=== PATIENT | male | born 1950 | race Caucasian/White ===

== ENCOUNTER 2020-08-02 08:47 | Outpatient (CLI) | payer SELFPAY ==
[2020-08-02 11:44] LABS: Source Nasal/Nares
[2020-08-02 14:48] LABS: COVID-19 PCR Negative (Negative)
== END 2020-08-02 08:48 | disposition home or self-care (01) ==
PROVIDERS: PCP Internal Medicine; Visit Provider Surgery
DX: Z20.822 Contact with and (suspected) exposure to COVID-19 (principal); Z01.818 Encounter for other preprocedural examination
CPT/HCPCS: 87635

== ENCOUNTER 2022-12-09 11:46 | Emergency (ER) | payer OTHER, SELFPAY ==
[2022-12-09 12:01] VITALS: BP 149/79; PULSE 125; RESP 18; TEMP 37.6; O2SAT 96
--- NOTE | 2022-12-09 12:15 | RT.EKG_ITS ---
APPROVED REPORT Exam: Resting ECG Reason for Exam: tachycardia Patient Location: E HR:98 bpm ECG Measurements Heart Rate 98 AXIS DE 158 P 45 QRSd 93 QRS 10 QT 335 T -9 QTc 427 Conclusion Sinus rhythm...normal P axis, V-rate 60- 99 sinus rhythm, normal axis, normal intervals non ischemic
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
[2022-12-09] MEDS: CLINDAMYCIN 600 MG/50 ML BAG 100 MG IVPB (13:06)
[2022-12-09 13:07] VITALS: TEMP 38.6
[2022-12-09] MEDS: ACETAMINOPHEN 1,000 MG/100 ML BTL 400 MG IVPB (13:07)
[2022-12-09] MEDS: Normal Saline 1,000 ML 1000 ML IV (13:08)
[2022-12-09] MEDS: Ondansetron 4 MG/2 ML VIAL IVP (13:08)
[2022-12-09 13:11] LABS: Abs Immature Grans 0.09 10^3/uL (0.0-0.06); Absolute Basophil Count 0.03 10^3/uL (0.0-0.2); Absolute Eosinophil Count 0.02 10^3/uL (0.0-0.7); Absolute Lymphocyte Count 0.26 10^3/uL (1.2-3.4); Absolute Monocyte Count 0.93 10^3/uL (0.1-0.8); Absolute Neutrophil Count 14.65 10^3/uL (1.2-6.7); Basophils % 0.2; Eosinophils % 0.1; HGB 14.7 g/dL (13.5-17.5); Immature Grans % 0.6; Lymphocytes % 1.6; MCH 29.7 pg (27.0-33.0); MCHC 33.4 % (32.0-36.0); MCV 89 fL (80-95); MPV 10.6 fL (8.0-11.0); Monocytes % 5.8; Neutrophils % 91.7; Platelet Count 217 10^3/uL (130-400); RBC 4.95 10^6/uL (4.36-5.78); RDW 13.6 % (11.8-14.1); RDW-SD 44.1 fL; WBC 15.98 10^3/uL (4.4-10.8)
[2022-12-09 13:25] VITALS: BP 135/84; PULSE 105; RESP 14; TEMP 38.1; O2SAT 96
[2022-12-09 13:27] LABS: ALT 34 U/L (16-63); AST 23 U/L (15-37); Albumin 3.9 g/dL (3.4-5.0); Alkaline Phosphatase 97 U/L (46-116); BUN 22 mg/dL (7-18); Bilirubin, Total 0.8 mg/dL (0.2-1.0); Calcium 9.5 mg/dL (8.5-10.1); Chloride 101 mmol/L (98-107); Estimated GFR 79.47 (mL/min/1.73m2); Glucose 126 mg/dL (74-106); Potassium 3.8 mmol/L (3.5-5.1); Sodium 136 mmol/L (136-145); Total Protein 7.7 g/dL (6.4-8.2)
[2022-12-09 15:10] VITALS: BP 123/72; PULSE 96; TEMP 36; O2SAT 96
[2022-12-09 15:35] VITALS: BP 119/78; PULSE 98; RESP 12; TEMP 37; O2SAT 95
[2022-12-09 15:45] VITALS: BP 119/78; PULSE 98; RESP 12; TEMP 37; O2SAT 95
== END 2022-12-09 15:48 | disposition home or self-care (01) ==
PROVIDERS: Emergency Provider Emergency Medicine
DX: L03.114 Cellulitis of left upper limb (principal)
CPT/HCPCS: 36410; 80053; 87040; 87426; 93005; 96361; 96365; 96375; 99284; 85025; 93010; J0131; J2405

== ENCOUNTER 2024-07-11 07:14 | Emergency (ER) | payer OTHER, SELFPAY ==
--- NOTE | 2024-07-11 07:15 | DI.RAD_ITS ---
Exam(s) XR HAND RT COMPLETE EXAM: XR HAND RT COMPLETE CLINICAL HISTORY: Wood splinter palmar aspect base of index fing. TECHNIQUE: 2D digital imaging was performed. Three views. COMPARISON: No exams were available for comparison FINDINGS: BONES: No acute fracture is present. No bony destructive lesion is seen. JOINTS: No dislocation present. Degenerative changes of the interphalangeal joints. SOFT TISSUE: Soft tissue swelling of the index finger. No foreign body identified. IMPRESSION: Soft tissue swelling of the index finger. No visible foreign body. DATA REPOSITORY: RADIATION DOSE DELIVERED:
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
[2024-07-11 07:19] VITALS: BP 180/90; PULSE 65; RESP 17; TEMP 36.5; O2SAT 99
--- NOTE | 2024-07-11 07:36 | NUR.NOTE ---
Nursing Note: small area of redness to right index finger base with very small open area, no obvious foreign body visualized. No purulent drainage.
[2024-07-11 07:58] VITALS: BP 180/90; PULSE 65; RESP 17; O2SAT 99
--- NOTE | 2024-07-11 07:59 | DI.VRAD_ITS ---
PROCEDURE INFORMATION: Exam: XR Right Hand Exam date and time: 07/11/2024 7:34 AM Age: 74 years old Clinical indication: Pain; Finger(s); Right; Wood splinter palmar aspect base of index finger TECHNIQUE: Imaging protocol: Radiologic exam of the right hand. Views: 3 or more views. COMPARISON: No relevant prior studies available. FINDINGS: Bones/joints: Degenerative changes in the interphalangeal joints with cystic foci in the 3rd and 4th middle phalanges. Soft tissues: There is a 5 mm linear radiodensity projecting over the base of a metacarpal, seen only on the lateral view. This may represent the clinically detected foreign body. Scattered soft tissue calcifications. IMPRESSION: Suspect foreign body as described above. Dictated and Authenticated by: Bita Moreland MD. Orderin Ami Kirk MD
== END 2024-07-11 07:59 | disposition home or self-care (01) ==
LOC: ER 08:02
PROVIDERS: Emergency Provider Emergency Medicine
DX: S60.450A Superficial foreign body of right index finger, initial encounter (principal); I10 Essential (primary) hypertension; W54.8XXA Other contact with dog, initial encounter; Y93.89 Activity, other specified; Y92.018 Other place in single-family (private) house as the place of occurrence of the external cause
CPT/HCPCS: 76882; 99284; 73130; 99283